=== PATIENT | female | born 1995 | race Caucasian/White ===

== ENCOUNTER 2018-01-29 18:51 | Emergency (ER) | payer OTHER ==
[~2018-01-29] VITALS: Ht 152.4 cm; Wt 47.0 kg
[2018-01-29 19:35] LABS: HEMATOCRIT 43.3 % (36.0-46.0); MCH 30.2 PG (29.0-34.0); MCHC 34.6 G/DL (30.0-36.0); MCV 87.1 FL (83-99); PLATELET COUNT 268 K/uL (156-360); RBC DIS.WIDTH-CV 11.8 % (11.8-14.6); RBC DIS.WIDTH-SD 37.6 % (39-53); RED BLOOD COUNT 4.97 M/uL (3.80-5.20); WHITE BLOOD COUNT 6.5 K/uL (4.1-10.2)
[2018-01-29 19:51] LABS: CHLORIDE 108 mEq/L (99-109); POTASSIUM 4.5 mEq/L (3.7-5.4); SODIUM 140 mEq/L (136-147)
[2018-01-29 19:53] LABS: GLUCOSE 91 mg/dL (70-99)
[2018-01-29 19:57] LABS: GFR ESTIMATE (CALCULATED) > 59 mL/min/
[2018-01-29 19:58] LABS: UREA NITROGEN (BUN) 14 mg/dL (9-23)
[2018-01-29 20:00] LABS: TROP-I INTERPRETATION NEGATIVE; TROPONIN-I < 0.01 ng/mL (0.0-0.30)
[2018-01-29 21:57] LABS: D-DIMER ELISA < 150.00 ng/mLDDU (<230)
[2018-01-29 22:10] LABS: MAGNESIUM 2.3 mg/dL (1.3-2.7)
[2018-01-29 22:22] LABS: QUANTITATIVE HCG < 4.0 MIU/ML
[2018-01-29] MEDS ORDERED: MOTRIN800 MG PO (23:07)
[2018-01-29 23:12] LABS: THYROTROPIN (TSH) 1.2 MIU/L (0.4-5.5)
[2018-01-29 23:24] VITALS: BP 122/92
== END 2018-01-29 23:25 | disposition home or self-care (01) ==
LOC: EME 18:51
DX: R07.89 Other chest pain (principal)
CPT/HCPCS: 71046; 80048; 83735; 84443; 84484; 84702; 85027; 85379; 93005; 99281; 99284

== ENCOUNTER 2018-02-04 21:19 | Emergency (ER) | payer OTHER ==
[~2018-02-04] VITALS: Ht 152.4 cm; Wt 45.8 kg
[~2018-02-04 21:19] MED LIST: MOTRIN800 MG PO
[2018-02-04 22:54] LABS: HEMATOCRIT 42.9 % (36.0-46.0); MCH 29.9 PG (29.0-34.0); MCV 85.5 FL (83-99); PLATELET COUNT 220 K/uL (156-360); RBC DIS.WIDTH-CV 11.5 % (11.8-14.6); RBC DIS.WIDTH-SD 35.8 % (39-53); RED BLOOD COUNT 5.02 M/uL (3.80-5.20); WHITE BLOOD COUNT 5.3 K/uL (4.1-10.2)
[2018-02-04 23:04] LABS: CHLORIDE 105 mEq/L (99-109); POTASSIUM 4.4 mEq/L (3.7-5.4); SODIUM 136 mEq/L (136-147)
[2018-02-04 23:05] LABS: GLUCOSE 83 mg/dL (70-99)
[2018-02-04 23:09] LABS: CREATININE 0.8 mg/dL (0.6-1.3); GFR ESTIMATE (CALCULATED) > 59 mL/min/
[2018-02-04 23:10] LABS: UREA NITROGEN (BUN) 13 mg/dL (9-23)
[2018-02-04 23:19] LABS: QUANTITATIVE HCG < 4.0 MIU/ML
[2018-02-04 23:41] LABS: MONOSPOT (MONONUCLEOSIS SEROL) NEGATIVE
[2018-02-05 00:57] VITALS: BP 101/66
== END 2018-02-05 00:58 | disposition home or self-care (01) ==
LOC: EME 21:19
PROVIDERS: Nurse Practitioner Family
DX: R42 Dizziness and giddiness (principal); M79.1 Myalgia; J02.9 Acute pharyngitis, unspecified
CPT/HCPCS: 80048; 84443; 84702; 85027; 86308; 87502; 87651 90; 99281; 99285; J7120

== ENCOUNTER 2018-04-28 20:49 | Emergency (ER) | payer OTHER ==
[~2018-04-28] VITALS: Ht 152.4 cm; Wt 45.3 kg
[2018-04-28 22:03] VITALS: BP 122/92
== END 2018-04-28 22:04 | disposition home or self-care (01) ==
LOC: EME 20:49
DX: F41.9 Anxiety disorder, unspecified (principal)
CPT/HCPCS: 99281; 99283